=== PATIENT | female | born 1985 ===

== ENCOUNTER 2017-01-11 12:44 | Emergency (ER) | payer OTHER ==
[2017-01-11 12:51] VITALS: BP 108/65
--- NOTE | 2017-01-11 13:33 | UC ---
Skin Complaint HPI - HPI Summary HPI Summary: Pt presents to urgent care with report of rash b/l LE. Pt states earlier this week was in [place] and was sitting on edge of a stream. Pt sates later that evening developed itching rash to LLE. Pt states over last 2 days developed itchy, red raised patches to b/l LE. Pt states has been placing hydrocortisone cream and calamine lotion with little improvement. PT states got in a sauna and itching increased. No oral, facial swelling. No SOB. No difficulty with swallowing. Pt states on LLE initial wound has some yellow drainage after applying abx ointment. No reddness, red streaking No fever, chills Pt's medications reviewed at this visit - History of Current Complaint Chief Complaint: UCSkin Time Seen by Provider: 01/11/17 13:23 Stated Complaint: RASH Hx Obtained From: Patient Hx Last Menstrual Period: 12/11/16 ?: No Onset/Duration: Gradual Onset Skin Exposure Onset/Duration: Days Ago Onset Severity: Mild Current Severity: Mild Aggravating: Other - sauna Alleviating: Cold Compresses Associated Signs & Symptoms: Positive: Negative - Allergy/Home Medications Allergies/Adverse Reactions: Allergies Allergy/AdvReac Type Severity Reaction Status Date / Time Famotidine [From Pepcid AC] Allergy Severe Hives Verified 06/27/15 18:58 Review of Systems Constitutional: Negative Skin: Rash ENT: Negative Respiratory: Negative All Other Systems Reviewed And Are Negative: Yes PMH/Surg Hx/FS Hx/Imm Hx Previously Healthy: Yes - Surgical History Surgical History: None - Social History Occupation: Employed Full-time Lives: With Family Alcohol Use: Occasionally Substance Use Type: None Smoking Status (MU): Former Smoker - Immunization History Most Recent Influenza Vaccination: never Most Recent Tetanus Shot: unknown Physical Exam Triage Information Reviewed: Yes Appearance: Well-Appearing, No Pain Distress, Well-Nourished Vital Signs: Initial Vital Signs Temp 98 F 01/11/17 12:46 Pulse 80 01/11/17 12:46 Resp 16 01/11/17 12:46 BP 108/65 01/11/17 12:46 Pulse Ox 99 01/11/17 12:46 Vital Signs Reviewed: Yes Eye Exam: Normal Eyes: Positive: Conjunctiva Clear. Negative: Discharge ENT: Positive: Hearing grossly normal Neck: Positive: Supple, Nontender, No Lymphadenopathy Respiratory: Positive: No respiratory distress, No accessory muscle use Cardiovascular: Positive: Pulses Normal Neurological Exam: Normal Psychological Exam: Normal Skin: Positive: rashes, Other - PT with raised, erythematous pruitic lesions to b/l LE No purpura No tender No fluctance one lesion on LLE just prox to ankle 2x2 cm with mild yellow weeping dried discharge Course/Dx - Course Course Of Treatment: PT with apparent contact dermatitis on b/l LE with appaent pruritis. No infected appearing lesions. Will start Prednisone. benadryl. 1% hydrocortisone. avoid heat, NSAIDS. Pt pepcid allergic. return precautions discussed - Diagnoses Provider Diagnoses: contact dermatitis Discharge - Discharge Plan Condition: Stable Disposition: HOME Prescriptions: Hydrocortisone 1% CREAM(NF) 1 applic TOPICAL BID #1 applic predniSONE TAB* [Deltasone TAB*] 20 mg PO DAILY #20 tab Patient Education Materials: Contact Dermatitis (ED) Referrals: Yvonne Cross MD [Primary Care Provider] - Additional Instructions: -Take prednisone once daily directly as prescribed until gone -Okay to take Benadryl every 8 hours. This may cause drowsiness. Do NOT drive, operate machinery or drink alcohol while taking this medication - Avoid getting over heated - hot tubs, hot shower, exercise for 2-3 days - Avoid NSAIDs (Motrin, Advil, Naprosyn, Aleve) for 2-3 days - Okay to apply cool compresses to your wounds - Call your doctor or return with questions or concerns
== END 2017-01-11 13:46 | disposition home or self-care (01) ==
LOC: UCEAST 12:44
DX: L25.9 Unspecified contact dermatitis, unspecified cause (principal); Z87.891 Personal history of nicotine dependence
CPT/HCPCS: 99212; G0463